=== PATIENT | female | born 1990 | race Caucasian/White ===

== ENCOUNTER 2016-11-20 03:49 | Inpatient (IN) | payer OTHER ==
[2016-11-20] MEDS ORDERED: Sodium Chloride 0.9% 2.5 ML Syringe FLUSH PRN (04:25)
[2016-11-20] MEDS ORDERED: Misoprostol 200 MCG Tab PO PRN (04:25)
[2016-11-20] MEDS ORDERED: Methylergonovine 0.2 MG/1 ML Amp IM PRN (04:25)
[2016-11-20] MEDS ORDERED: Sodium Chloride 0.9% 10 ML Syringe FLUSH PRN (04:25)
[2016-11-20] MEDS ORDERED: Water For Irrigation,Sterile 1,000 ML Container IRR PRN (04:25)
[2016-11-20] MEDS ORDERED: Carboprost Tromethamine 250 MCG/1 ML Amp IM PRN (04:25)
[2016-11-20] MEDS ORDERED: Lidocaine 1% 50 ML MDV INJECT PRN (04:25)
[2016-11-20] MEDS ORDERED: Nalbuphine 10 MG/1 ML Vial IVPUSH PRN (04:25)
[2016-11-20] MEDS ORDERED: Butorphanol 1 MG/ML SDV IVPUSH PRN (04:25)
[2016-11-20] MEDS ORDERED: Oxytocin/0.9 % Sodium Chloride 30 UNIT/500 ML BAG IV ONE (04:27)
[2016-11-20] MEDS: Lactated Ringers 1,000 ML IV SCH ×2 (04:35→05:30)
[2016-11-20] MEDS ORDERED: fentaNYL 100 MCG/2 ML SDV ONE (05:08)
[2016-11-20] MEDS ORDERED: Ropivacaine HCl/PF 100 ML ONE (05:09)
[2016-11-20] MEDS ORDERED: Ropivacaine 0.2% 2 MG/ML 20 ML SDV ONE (05:09)
--- NOTE | 2016-11-20 05:47 | PCM.PREANE ---
Preanesthetic Assessment - Anesthesia/Transfusion/Family Hx Anesthesia History: No Prior Anesthesia Family History of Anesthesia Reaction: No Transfusion History: No Prior Transfusion(s) Additional History: Patient denies any medical problems besides "slight asthma 10 years ago." Has never had surgery and denies any personal or family hx of bleeding or clotting problems. - Review of Systems General: No Symptoms Pulmonary: No Symptoms Cardiovascular: No Symptoms Gastrointestinal: No Symptoms Neurological: No Symptoms Other: Reports: None - Physical Assessment Height: 1.78 m Weight: 77.111 kg ASA Class: 2 Mental Status: Alert & Oriented x3 Airway Class: Mallampati = 2 Dentition: Reports: Normal Dentition ROM/Head Extension: Full - Lab Values: Laboratory Last Values WBC 11.31 K/uL (4.0-11.0) H 11/20/16 04:39 RBC 3.99 M/uL (4.30-5.90) L 11/20/16 04:39 Hgb 13.1 g/dL (12.0-16.0) 11/20/16 04:39 Hct 37.2 % (36.0-46.0) 11/20/16 04:39 MCV 93.2 fL (80.0-98.0) 11/20/16 04:39 MCH 32.8 pg (27.0-32.0) H 11/20/16 04:39 MCHC 35.2 g/dL (31.0-37.0) 11/20/16 04:39 RDW Std Deviation 42.8 fl (28.0-62.0) 11/20/16 04:39 RDW Coeff of Elda 13 % (11.0-15.0) 11/20/16 04:39 Plt Count 175 K/uL (150-400) 11/20/16 04:39 MPV 11.90 fL (7.40-12.00) 11/20/16 04:39 Nucleated RBC % 0.0 /100WBC 11/20/16 04:39 Nucleated RBCs # 0 K/uL 11/20/16 04:39 Blood Type A POSITIVE 11/20/16 04:39 Antibody Screen NEGATIVE 11/20/16 04:39 - Allergies Allergies/Adverse Reactions: Allergies Allergy/AdvReac Type Severity Reaction Status Date / Time No Known Allergies Allergy Verified 08/15/15 02:29 - Acknowledgements Anesthesia Type Planned: Epidural Pt an Appropriate Candidate for the Planned Anesthesia: Yes Alternatives and Risks of Anesthesia Discussed w Pt/Guardian: Yes Pt/Guardian Understands and Agrees with Anesthesia Plan: Yes PreAnesthesia Questionnaire Respiratory History: Reports: Asthma Other Respiratory History: mild asthma 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: - Infectious Disease History Infectious Disease History: Reports: Chicken Pox - Past Surgical History HEENT Surgical History: Reports: Oral Surgery - SUBSTANCE USE Smoking Status *Q: Never Smoker Second Hand Smoke Exposure: No Recreational Drug Use History: No - HOME MEDS Home Medications: Home Meds Acetaminophen [Tylenol Extra Strength] 1,000 mg PO Q4H PRN #0 tablet 08/16/15 [ Rx] Benzocaine/Menthol [Dermoplast Pain Relief 20%-0.5% [place]] 78 gm TOP ASDIRECTED PRN #0 canister 08/16/15 [Rx] Docusate Sodium [Colace] 100 mg PO BID PRN #0 cap 08/16/15 [Rx] Ibuprofen [IJD: Ibuprofen] 800 mg PO Q6H PRN #0 tablet 08/16/15 [Rx] - CURRENT (IN HOUSE) MEDS Current Meds: Current Medications Butorphanol Tartrate (Stadol) 1 mg IVPUSH Q1H PRN PRN Reason: Pain Carboprost Tromethamine (Hemabate Ds) 250 mcg IM ASDIRECTED PRN PRN Reason: Post Hemorrhage Lactated Ringer's (Ringers, Lactated) 1,000 mls @ 150 mls/hr IV ASDIRECTED JOIE Last Admin: 11/20/16 04:35 Dose: 150 mls/hr Lidocaine HCl (Xylocaine 1%) 50 ml INJECT .ONCE PRN PRN Reason: Laceration repair Methylergonovine Maleate (Methergine) 0.2 mg IM ASDIRECTED PRN PRN Reason: Post Hemorrhage Misoprostol (Cytotec) 200 mcg PO .ONCE PRN PRN Reason: Post Hemorrhage Nalbuphine HCl (Nubain) 10 mg IVPUSH Q1H PRN PRN Reason: Pain (severe 7-10) Sodium Chloride (Saline Flush) 10 ml FLUSH ASDIRECTED PRN PRN Reason: Keep Vein Open Sodium Chloride (Saline Flush) 2.5 ml FLUSH ASDIRECTED PRN PRN Reason: Keep Vein Open Sterile Water (Sterile Water For Irrigation) 1,000 ml IRR ASDIRECTED PRN PRN Reason: delivery Discontinued Medications Fentanyl (Sublimaze) Confirm Administered Dose 300 mcg .ROUTE .STK-MED ONE Stop: 11/20/16 05:09 Oxytocin/Sodium Chloride (Oxytocin 30 Unit/500 Ml-Ns) 30 unit in 500 mls @ 500 mls/hr IV ONETIME ONE Stop: 11/20/16 05:26 Ropivacaine (Naropin 0.2%) Confirm Administered Dose 100 mls @ as directed .ROUTE .STK-MED ONE Stop: 11/20/16 05:10 Ropivacaine (Naropin 0.2%) Confirm Administered Dose 20 ml .ROUTE .STK-MED ONE Stop: 11/20/16 05:10
[2016-11-20] MEDS ORDERED: Ibuprofen 400 MG Tab PO PRN (10:05)
[2016-11-20] MEDS ORDERED: oxyCODONE 5 MG Tab PO PRN (10:05)
[2016-11-20] MEDS ORDERED: Lanolin 100% Cream 7 GM Tube TOP PRN (10:05)
[2016-11-20] MEDS ORDERED: Acetaminophen 500 MG Tab PO PRN ×2 (10:05)
[2016-11-20] MEDS ORDERED: Docusate Sodium 100 MG Cap PO PRN (10:05)
[2016-11-20] MEDS ORDERED: Bisacodyl 10 MG Supp RECTAL PRN (10:05)
[2016-11-20] MEDS ORDERED: Witch Hazel Medicated Pads 40/Jar TOP PRN (10:05)
[2016-11-20] MEDS ORDERED: Benzocaine/Menthol 20%-0.5% Spray 78 GM Cannister TOP PRN (10:05)
--- NOTE | 2016-11-20 12:27 | PCM48HPAN ---
Post Anesthesia Note - EVALUATION WITHIN 48HRS OF ANESTHETIC Vital Signs in Normal Range: Yes Patient Participated in Evaluation: Yes Respiratory Function Stable: Yes Airway Patent: Yes Cardiovascular Function Stable: Yes Hydration Status Stable: Yes Pain Control Satisfactory: Yes Nausea and Vomiting Control Satisfactory: Yes Mental Status Recovered: Yes - COMMENTS/OBSERVATIONS Free Text/Narrative:: Sitting up in bed. Denies any complaints.
[2016-11-20] MEDS: Ibuprofen 800 MG Tab PO PRN (16:05)
[2016-11-21] MEDS: Ibuprofen 800 MG Tab PO PRN ×2 (00:09→08:54)
[2016-11-21 09:00] VITALS: BP 111/71
--- NOTE | 2016-11-21 10:19 | PCM.PNPP ---
<Rod Peralta - Last Filed: 11/21/16 10:28> - General Info Date of Service: 11/21/16 Functional Status: Reports: Pain Controlled, Tolerating Diet, Ambulating, Urinating - Review of Systems General: Denies: Fever, Weakness, Fatigue HEENT: Denies: Headaches, Visual Changes Pulmonary: Denies: Shortness of Breath, Pleuritic Chest Pain, Cough Cardiovascular: Denies: Chest Pain, Palpitations Gastrointestinal: Reports: Diarrhea (One episode last night). Denies: Constipation, Nausea, Vomiting Genitourinary: Denies: Dysuria Neurological: Denies: Confusion, Dizziness, Headache - General Info Date of Service: 11/21/16 - Patient Data Vital Signs - Most Recent: Last Vital Signs Temp 98 F 11/21/16 08:57 Pulse 69 11/21/16 08:57 Resp 16 11/21/16 08:57 BP 111/71 11/21/16 08:57 Pulse Ox 97 11/21/16 08:57 Weight - Most Recent: 170 lb Lab Results - Last 24 Hours: Laboratory Results - last 24 hr 11/21/16 Range/Units 05:16 Hgb 11.5 L (12.0-16.0) g/dL Hct 32.9 L (36.0-46.0) % Med Orders - Current: Current Medications Acetaminophen (Tylenol Extra Strength) 500 mg PO Q4H PRN PRN Reason: Pain Acetaminophen (Tylenol Extra Strength) 1,000 mg PO Q4H PRN PRN Reason: Pain Benzocaine/Menthol (Dermoplast Pain Relief 20%-0.5% [place]) 78 gm TOP ASDIRECTED PRN PRN Reason: Perineal Comfort Measure Last Admin: 11/20/16 11:15 Dose: 1 canister Bisacodyl (Dulcolax) 10 mg RECTAL .ONCE PRN PRN Reason: Constipation Docusate Sodium (Colace) 100 mg PO BID PRN PRN Reason: Constipation Emollient Ointment (Lansinoh Hpa) 0 gm TOP ASDIRECTED PRN PRN Reason: Sore Nipples Last Admin: 11/20/16 11:15 Dose: 1 applicful Ibuprofen (Motrin) 400 mg PO Q4H PRN PRN Reason: Pain Ibuprofen (Motrin) 800 mg PO Q6H PRN PRN Reason: Pain Last Admin: 11/21/16 08:54 Dose: 800 mg Oxycodone HCl (Oxycodone) 5 mg PO Q2H PRN PRN Reason: Pain Witch Symone (Tucks) 1 pad TOP ASDIRECTED PRN PRN Reason: comfort care Last Admin: 11/20/16 11:15 Dose: 1 tub Discontinued Medications Butorphanol Tartrate (Stadol) 1 mg IVPUSH Q1H PRN PRN Reason: Pain Carboprost Tromethamine (Hemabate Ds) 250 mcg IM ASDIRECTED PRN PRN Reason: Post Hemorrhage Fentanyl (Sublimaze) Confirm Administered Dose 300 mcg .ROUTE .[place]-MED ONE Stop: 11/20/16 05:09 Lactated Ringer's (Ringers, Lactated) 1,000 mls @ 150 mls/hr IV ASDIRECTED JOIE Last Admin: 11/20/16 05:30 Dose: 150 mls/hr Oxytocin/Sodium Chloride (Oxytocin 30 Unit/500 Ml-Ns) 30 unit in 500 mls @ 500 mls/hr IV ONETIME ONE Stop: 11/20/16 05:26 Last Admin: 11/20/16 09:28 Dose: 999 mls/hr Ropivacaine (Naropin 0.2%) Confirm Administered Dose 100 mls @ as directed .ROUTE .[employer] ONE Stop: 11/20/16 05:10 Lidocaine HCl (Xylocaine 1%) 50 ml INJECT .ONCE PRN PRN Reason: Laceration repair Methylergonovine Maleate (Methergine) 0.2 mg IM ASDIRECTED PRN PRN Reason: Post Hemorrhage Misoprostol (Cytotec) 200 mcg PO .ONCE PRN PRN Reason: Post Hemorrhage Nalbuphine HCl (Nubain) 10 mg IVPUSH Q1H PRN PRN Reason: Pain (severe 7-10) Ropivacaine (Naropin 0.2%) Confirm Administered Dose 20 ml .ROUTE .[employer] ONE Stop: 11/20/16 05:10 Sodium Chloride (Saline Flush) 10 ml FLUSH ASDIRECTED PRN PRN Reason: Keep Vein Open Sodium Chloride (Saline Flush) 2.5 ml FLUSH ASDIRECTED PRN PRN Reason: Keep Vein Open Sterile Water (Sterile Water For Irrigation) 1,000 ml IRR ASDIRECTED PRN PRN Reason: delivery - Interaction Infant Disposition, : to Nursery Infant Feeding: Breastfed ; Nursed Well Support Person: - Recovery Exam Fundal Tone: Firm Fundal Level: 1 Fingerbreadths Below Umbilicus Fundal Placement: Midline Lochia Amount: Scant Lochia Color: Rubra/Red Perineum Description: Intact, Minimal Bruising/Swelling Episiotomy/Laceration: Approximated Bladder Status: Nonpalpable Urinary Elimination: Voided - Exam General: Alert, Oriented HEENT: Mucous Membr. Moist/[place] Neck: Supple, Trachea Midline Lungs: Clear to Auscultation, Normal Respiratory Effort Cardiovascular: Regular Rate, Regular Rhythm GI/Abdominal Exam: Normal Bowel Sounds, Soft Extremities: Normal Inspection, Normal Range of Motion, No Pedal Edema Skin: Warm, Dry, Intact Neurological: No New Focal Deficit Psy/Mental Status: Alert, Normal Affect, Normal Mood - Problem List & Annotations (1) Vaginal delivery SNOMED Code(s): 222177208 Code(s): O80 - ENCOUNTER FOR FULL-TERM UNCOMPLICATED DELIVERY Status: Acute Current Visit: No - Problem List Review Problem List Initiated/Reviewed/Updated: Yes - Assessment Assessment:: PPD #1 - 39wk0d gestation. Minimal pain and lochia. is going well. - Plan Plan:: Plan to discharge today if no complications arise and if baby boy is ready to be discharged. Discharge instruction reviewed. Nothing in the vagina for 6 weeks. Continue PNV while breast feeding. Can use OTC ibuprofen/tylenol as needed for pain. Instructed patient to call if she develops fever greater than 101 or bleeding through a large pad an hour. F/U with [facility] in 6 weeks. <AmySakshi - Last Filed: 11/21/16 11:39> - Patient Data Vital Signs - Most Recent: Last Vital Signs Temp 36.6 C 11/21/16 08:57 Pulse 69 11/21/16 08:57 Resp 16 11/21/16 08:57 BP 111/71 11/21/16 08:57 Pulse Ox 97 11/21/16 08:57 Lab Results - Last 24 Hours: Laboratory Results - last 24 hr 11/21/16 Range/Units 05:16 Hgb 11.5 L (12.0-16.0) g/dL Hct 32.9 L (36.0-46.0) % Med Orders - Current: Current Medications Acetaminophen (Tylenol Extra Strength) 500 mg PO Q4H PRN PRN Reason: Pain Acetaminophen (Tylenol Extra Strength) 1,000 mg PO Q4H PRN PRN Reason: Pain Benzocaine/Menthol (Dermoplast Pain Relief 20%-0.5% [place]) 78 gm TOP ASDIRECTED PRN PRN Reason: Perineal Comfort Measure Last Admin: 11/20/16 11:15 Dose: 1 canister Bisacodyl (Dulcolax) 10 mg RECTAL .ONCE PRN PRN Reason: Constipation Docusate Sodium (Colace) 100 mg PO BID PRN PRN Reason: Constipation Emollient Ointment (Lansinoh Hpa) 0 gm TOP ASDIRECTED PRN PRN Reason: Sore Nipples Last Admin: 11/20/16 11:15 Dose: 1 applicful Ibuprofen (Motrin) 400 mg PO Q4H PRN PRN Reason: Pain Ibuprofen (Motrin) 800 mg PO Q6H PRN PRN Reason: Pain Last Admin: 11/21/16 08:54 Dose: 800 mg Oxycodone HCl (Oxycodone) 5 mg PO Q2H PRN PRN Reason: Pain Witch Symone (Tucks) 1 pad TOP ASDIRECTED PRN PRN Reason: comfort care Last Admin: 11/20/16 11:15 Dose: 1 tub Discontinued Medications Butorphanol Tartrate (Stadol) 1 mg IVPUSH Q1H PRN PRN Reason: Pain Carboprost Tromethamine (Hemabate Ds) 250 mcg IM ASDIRECTED PRN PRN Reason: Post Hemorrhage Fentanyl (Sublimaze) Confirm Administered Dose 300 mcg .ROUTE .STK-MED ONE Stop: 11/20/16 05:09 Lactated Ringer's (Ringers, Lactated) 1,000 mls @ 150 mls/hr IV ASDIRECTED JOIE Last Admin: 11/20/16 05:30 Dose: 150 mls/hr Oxytocin/Sodium Chloride (Oxytocin 30 Unit/500 Ml-Ns) 30 unit in 500 mls @ 500 mls/hr IV ONETIME ONE Stop: 11/20/16 05:26 Last Admin: 11/20/16 09:28 Dose: 999 mls/hr Ropivacaine (Naropin 0.2%) Confirm Administered Dose 100 mls @ as directed .ROUTE .[employer] ONE Stop: 11/20/16 05:10 Lidocaine HCl (Xylocaine 1%) 50 ml INJECT .ONCE PRN PRN Reason: Laceration repair Methylergonovine Maleate (Methergine) 0.2 mg IM ASDIRECTED PRN PRN Reason: Post Hemorrhage Misoprostol (Cytotec) 200 mcg PO .ONCE PRN PRN Reason: Post Hemorrhage Nalbuphine HCl (Nubain) 10 mg IVPUSH Q1H PRN PRN Reason: Pain (severe 7-10) Ropivacaine (Naropin 0.2%) Confirm Administered Dose 20 ml .ROUTE .[employer] ONE Stop: 11/20/16 05:10 Sodium Chloride (Saline Flush) 10 ml FLUSH ASDIRECTED PRN PRN Reason: Keep Vein Open Sodium Chloride (Saline Flush) 2.5 ml FLUSH ASDIRECTED PRN PRN Reason: Keep Vein Open Sterile Water (Sterile Water For Irrigation) 1,000 ml IRR ASDIRECTED PRN PRN Reason: delivery - Problem List & Annotations (1) Vaginal delivery SNOMED Code(s): 526881873 Code(s): O80 - ENCOUNTER FOR FULL-TERM UNCOMPLICATED DELIVERY Status: Acute Current Visit: No - My Orders Last 24 Hours: My Active Orders 11/20/16 Lunch Regular Diet [DIET] - Assessment Assessment:: Patient assessed independently, agree with above - Plan Plan:: Agree with above. Will call patient with 6 weeks appointment
--- NOTE | 2016-11-23 13:49 | OR ---
DATE OF PROCEDURE: 11/20/2016 SURGEON: Sakshi Reyes MD MANAGER FEDERAL: Kin Peralta, MS-IV. PREOPERATIVE DIAGNOSES: 1. Term at 39 weeks' gestation. 2. Spontaneous labor. POSTOPERATIVE DIAGNOSES: 1. Term at 39 weeks' gestation. 2. Spontaneous labor. 3. Delivered. PROCEDURE: 1. Spontaneous vaginal delivery. 2. Repair of first-degree perineal laceration. ANESTHESIA: Epidural. ESTIMATED BLOOD LOSS: 150 mL. COMPLICATIONS: None. DISPOSITION: Mother and baby stable in Labor and Delivery room, bonding. FINDINGS: Male , weight 3410 g, scores 7 and 9 at 1 and 5 minutes respectively. Grossly normal placenta with 3-vessel cord. First-degree vaginal wall laceration at 7 o'clock position. BRIEF HISTORY: Stephanie is a 26-year-old, G2, P1, who presented in the early hours of the morning at 39 weeks' gestation with a history of regular contractions since midnight. She denied vaginal bleeding, leakage of fluid, and reported good movement. Uncomplicated care. GBS negative. On admission at 0400 hours this morning, she was found to be 6 cm dilated with bulging membranes. She requested and received epidural for pain management. Artificial rupture of membranes was performed after the epidural was effective, clear amniotic fluid. She progressed to full dilatation and commenced active pushing. She pushed a little over 2 hours and brought the head down to a +4 station, and was set up for delivery in modified dorsolithotomy position. heart tracing was mainly category I, alternating with category II, especially during the second stage of labor with variable and occasional late decelerations, but maintained moderate variability. DESCRIPTION OF PROCEDURE: She had a spontaneous vaginal delivery of a live male infant in direct occipital posterior position, no nuchal cord, clear amniotic fluid at delivery. Anterior and posterior shoulders and the rest of the baby were delivered without difficulty. The baby was vigorous and cried spontaneously at . The baby was delivered onto the maternal abdomen in the presence of the attendant nursery nurse. Delayed cord clamping was performed, and the cord was subsequently cut. Cord, blood and gas samples were obtained. With delivery of the infant, oxytocin infusion was commenced, titration for active management of third stage of labor. The placenta was delivered by controlled cord traction and appeared to be complete and intact. Examination of the perineum revealed a small first-degree laceration at 7 o'clock position, which was repaired with 3-0 Polysorb suture. Hemostatic post repair. The patient tolerated the procedure well. Uterine massage was performed. The uterus was found to be well contracted below the umbilicus. Sponge, instrument, and needle counts were correct at the end of the delivery. ADUMVIV / SHARIFL /[id number] MTDShannan
== END 2016-11-21 12:45 | disposition home or self-care (01) | DRG 775 ==
LOC: MW.OBCHECK 03:49 → MW.OB 03:54 → MW.OBCHECK 04:26 → OBSVTOIN 10:05 → MW.OB 16:10
PROVIDERS: ADMIT Obstetrics & Gynecology; ATTEND Obstetrics & Gynecology
PROC: 10E0XZZ Delivery of Products of Conception, External Approach (ICD-10-PCS; principal; 2016-11-20)
PROC: 0HQ9XZZ Repair Perineum Skin, External Approach (ICD-10-PCS; 2016-11-20)
PROC: 10907ZC Drainage of Amniotic Fluid, Therapeutic from Products of Conception, Via Natural or Artificial Opening (ICD-10-PCS; 2016-11-20)
DX: O70.0 First degree perineal laceration during delivery (principal); Z3A.39 39 weeks gestation of pregnancy; Z37.0 Single live birth
CPT/HCPCS: 01967; 36415; 51702; 59025; 59409; 85014; 85018; 85027; 86850; 86900; 86901; A9270-GY; J2590; J2795; J3010; J7120

== ENCOUNTER 2018-12-14 00:48 | Inpatient (IN) | payer OTHER ==
[2018-12-14] MEDS ORDERED: Misoprostol 200 MCG Tab PO PRN (01:07)
[2018-12-14] MEDS ORDERED: Butorphanol 1 MG/ML SDV IVPUSH PRN (01:07)
[2018-12-14] MEDS ORDERED: Water For Irrigation,Sterile 1,000 ML Container IRR PRN (01:07)
[2018-12-14] MEDS ORDERED: Lidocaine 1% 50 ML MDV INJECT PRN (01:07)
[2018-12-14] MEDS ORDERED: Tranexamic Acid 1,000 MG in Sodium Chloride 0.9% 100 ML IV PRN (01:07)
[2018-12-14] MEDS ORDERED: Sodium Chloride 0.9% 10 ML SDV IV PRN (01:07)
[2018-12-14] MEDS ORDERED: Nalbuphine 10 MG/1 ML Vial IVPUSH PRN (01:07)
[2018-12-14] MEDS ORDERED: Methylergonovine 0.2 MG/1 ML Amp IM PRN (01:07)
[2018-12-14] MEDS ORDERED: Carboprost Tromethamine 250 MCG/1 ML Amp IM PRN (01:07)
[2018-12-14] MEDS ORDERED: Sodium Chloride 0.9% 10 ML Syringe FLUSH PRN (01:07)
[2018-12-14] MEDS ORDERED: Ondansetron 4 MG/2 ML SDV IVPUSH PRN (01:07)
[2018-12-14] MEDS ORDERED: Oxytocin/0.9 % Sodium Chloride 30 UNIT/500 ML BAG IV SCH (01:15)
[2018-12-14] MEDS: Lactated Ringers 1,000 ML IV SCH ×2 (01:20→02:06)
[2018-12-14] MEDS ORDERED: Ropivacaine HCl/PF 100 ML ONE (02:10)
[2018-12-14] MEDS ORDERED: fentaNYL 100 MCG/2 ML SDV ONE (02:10)
--- NOTE | 2018-12-14 02:29 | PCM.PREANE ---
Preanesthetic Assessment - Anesthesia/Transfusion/Family Hx Anesthesia History: Prior Anesthesia Without Reaction Family History of Anesthesia Reaction: No Transfusion History: No Prior Transfusion(s) - Physical Assessment NPO Status Date: 12/14/18 NPO Status Time: 00:05 Height: 1.78 m Weight: 74.843 kg ASA Class: 1 Mental Status: Alert & Oriented x3 Dentition: Reports: Normal Dentition - Lab Values: Laboratory Last Values WBC 10.68 K/uL (4.0-11.0) 12/14/18 01:41 RBC 3.87 M/uL (4.30-5.90) L 12/14/18 01:41 Hgb 12.6 g/dL (12.0-16.0) 12/14/18 01:41 Hct 36.0 % (36.0-46.0) 12/14/18 01:41 MCV 93.0 fL (80.0-98.0) 12/14/18 01:41 MCH 32.6 pg (27.0-32.0) H 12/14/18 01:41 MCHC 35.0 g/dL (31.0-37.0) 12/14/18 01:41 RDW Std Deviation 40.9 fl (28.0-62.0) 12/14/18 01:41 RDW Coeff of Elda 13 % (11.0-15.0) 12/14/18 01:41 Plt Count 185 K/uL (150-400) 12/14/18 01:41 MPV 10.60 fL (7.40-12.00) 12/14/18 01:41 - Allergies Allergies/Adverse Reactions: Allergies Allergy/AdvReac Type Severity Reaction Status Date / Time No Known Allergies Allergy Verified 08/15/15 02:29 - Acknowledgements Anesthesia Type Planned: Epidural Pt an Appropriate Candidate for the Planned Anesthesia: Yes Alternatives and Risks of Anesthesia Discussed w Pt/Guardian: Yes Pt/Guardian Understands and Agrees with Anesthesia Plan: Yes PreAnesthesia Questionnaire Respiratory History: Reports: Asthma Other Respiratory History: mild asthma 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: - Infectious Disease History Infectious Disease History: Reports: Chicken Pox - Past Surgical History HEENT Surgical History: Reports: Oral Surgery - HOME MEDS Home Medications: Home Meds Acetaminophen [Tylenol Extra Strength] 1,000 mg PO Q4H PRN #0 tablet 08/16/15 [ Rx] Benzocaine/Menthol [Dermoplast Pain Relief 20%-0.5% [place]] 78 gm TOP ASDIRECTED PRN #0 canister 08/16/15 [Rx] Docusate Sodium [Colace] 100 mg PO BID PRN #0 cap 08/16/15 [Rx] Ibuprofen [IJD: Ibuprofen] 800 mg PO Q6H PRN #0 tablet 08/16/15 [Rx] - CURRENT (IN HOUSE) MEDS Current Meds: Current Medications Butorphanol Tartrate (Stadol) 1 mg IVPUSH ASDIRECTED PRN PRN Reason: Pain Carboprost Tromethamine (Hemabate Ds) 250 mcg IM ASDIRECTED PRN PRN Reason: Post Hemorrhage Tranexamic Acid 1,000 mg/ (Sodium Chloride) 110 mls @ 660 mls/hr IV ONETIME PRN PRN Reason: Bleeding Lactated Ringer's (Ringers, Lactated) 1,000 mls @ 150 mls/hr IV ASDIRECTED JOIE Last Admin: 12/14/18 02:06 Dose: 999 mls/hr Oxytocin/Sodium Chloride (Oxytocin 30 Unit/500 Ml-Ns) 30 unit in 500 mls @ 999 mls/hr IV TITRATE [facility] Lidocaine HCl (Xylocaine 1%) 50 ml INJECT ONETIME PRN PRN Reason: Laceration repair Methylergonovine Maleate (Methergine) 0.2 mg IM ASDIRECTED PRN PRN Reason: Post Hemorrhage Misoprostol (Cytotec) 200 mcg PO ONETIME PRN PRN Reason: Post Hemorrhage Nalbuphine HCl (Nubain) 10 mg IVPUSH ASDIRECTED PRN PRN Reason: Pain (severe 7-10) Ondansetron HCl (Zofran) 4 mg IVPUSH Q6H PRN PRN Reason: Nausea/Vomiting Sodium Chloride (Saline Flush) 10 ml FLUSH ASDIRECTED PRN PRN Reason: Keep Vein Open Sodium Chloride (Normal Saline) 10 ml IV ASDIRECTED PRN PRN Reason: IV Use Sterile Water (Sterile Water For Irrigation) 1,000 ml IRR ASDIRECTED PRN PRN Reason: delivery Discontinued Medications Fentanyl (Sublimaze) Confirm Administered Dose 100 mcg .ROUTE .STK-MED ONE Stop: 12/14/18 02:11 Ropivacaine (Naropin 0.2%) Confirm Administered Dose 100 mls @ as directed .ROUTE .ST-MED ONE Stop: 12/14/18 02:11
--- NOTE | 2018-12-14 02:33 | PCM.PRNOTE ---
- Free Text/Narrative Note: Anes Note Patient requests epidural for L&D. Sitting position. Level L3-L4, midline approach. Sterile technique, chloraprep scrub to lumbar area. Sterile fenestrated drape applied. Epidural space easily achieved single attempt with ease using COURTNEY technique. COURTNEY at 3 cm. Cath threaded 5 cm with ease. Cath secured at skin at 8 cm, using sterile clear adhesive dressing. Test 0123 3 cc 1.5% lido with epi negative. Load 0125 10 cc 0.2% ropivicaine with 1 mcg cc fentanyl in slow divided doses. Pump started same solution at 8 cc hr with 6 cc q 20 min prn bolus. Heraclio well. Time with patient [id number] Narciso Branham INSURANCE FOLLOW UP REP
[2018-12-14] MEDS ORDERED: Oxytocin/0.9 % Sodium Chloride 30 UNIT/500 ML BAG ONE (04:40)
--- NOTE | 2018-12-14 05:37 | PCM.DEL ---
<Priya Garcia E - Last Filed: 12/14/18 05:45> L & D Note - General Info Date of Service: 12/14/18 Mother's Due Date: 12/14/18 - Delivery Note Labor: Spontaneous Delivery Outcome: Livebirth Infant Delivery Method: Spontaneous Vaginal Delivery-Single Delivery Mode: Spontaneous Nuchal Cord: None Anesthesia Type: Epidural Anesthetic: Lidocaine (Xylocaine) 1% Plain Amniotic Fluid Description: Clear Episiotomy Type: None Laceration: None Placenta: Intact, Spontaneous Cord: 3 Vessels Estimated Blood Loss: 200 Resuscitation Needed: No [place]: Suctioned, Bulb Syringe, Stimulated, Warmed, [place] Used Provider: Nakia Decker Score 1 min: 8 Score 5 min: 9 Second Stage Interventions: Reports: Encouragement Given, Pushing Effectively, Pushing, Stirrups/Leg Supports Delivery Comments (Free Text/Narrative):: Live female, Yesenia, with apgars 8/9 and weighing 3780 g - General Info Date of Service: 12/14/18 Admission Dx/Problem (Free Text): Spontaneous vaginal delivery Functional Status: Reports: Pain Controlled - Patient Data Weight - Most Recent: 76.204 kg Lab Results Last 24 Hours: Laboratory Results - last 24 hr 12/14/18 12/14/18 Range/Units 01:41 01:41 WBC 10.68 (4.0-11.0) K/uL RBC 3.87 L (4.30-5.90) M/uL Hgb 12.6 (12.0-16.0) g/dL Hct 36.0 (36.0-46.0) % MCV 93.0 (80.0-98.0) fL MCH 32.6 H (27.0-32.0) pg MCHC 35.0 (31.0-37.0) g/dL RDW Std Deviation 40.9 (28.0-62.0) fl RDW Coeff of Elda 13 (11.0-15.0) % Plt Count 185 (150-400) K/uL MPV 10.60 (7.40-12.00) fL Blood Type A POSITIVE Antibody Screen NEGATIVE Med Orders - Current: Current Medications Butorphanol Tartrate (Stadol) 1 mg IVPUSH ASDIRECTED PRN PRN Reason: Pain Carboprost Tromethamine (Hemabate Ds) 250 mcg IM ASDIRECTED PRN PRN Reason: Post Hemorrhage Tranexamic Acid 1,000 mg/ (Sodium Chloride) 110 mls @ 660 mls/hr IV ONETIME PRN PRN Reason: Bleeding Lactated Ringer's (Ringers, Lactated) 1,000 mls @ 150 mls/hr IV ASDIRECTED JOIE Last Admin: 12/14/18 02:06 Dose: 999 mls/hr Oxytocin/Sodium Chloride (Oxytocin 30 Unit/500 Ml-Ns) 30 unit in 500 mls @ 999 mls/hr IV TITRATE [facility] Lidocaine HCl (Xylocaine 1%) 50 ml INJECT ONETIME PRN PRN Reason: Laceration repair Methylergonovine Maleate (Methergine) 0.2 mg IM ASDIRECTED PRN PRN Reason: Post Hemorrhage Misoprostol (Cytotec) 200 mcg PO ONETIME PRN PRN Reason: Post Hemorrhage Nalbuphine HCl (Nubain) 10 mg IVPUSH ASDIRECTED PRN PRN Reason: Pain (severe 7-10) Ondansetron HCl (Zofran) 4 mg IVPUSH Q6H PRN PRN Reason: Nausea/Vomiting Sodium Chloride (Saline Flush) 10 ml FLUSH ASDIRECTED PRN PRN Reason: Keep Vein Open Sodium Chloride (Normal Saline) 10 ml IV ASDIRECTED PRN PRN Reason: IV Use Sterile Water (Sterile Water For Irrigation) 1,000 ml IRR ASDIRECTED PRN PRN Reason: delivery Discontinued Medications Fentanyl (Sublimaze) Confirm Administered Dose 100 mcg .ROUTE .STK-MED ONE Stop: 12/14/18 02:11 Ropivacaine (Naropin 0.2%) Confirm Administered Dose 100 mls @ as directed .ROUTE .STK-MED ONE Stop: 12/14/18 02:11 Oxytocin/Sodium Chloride (Oxytocin 30 Unit/500 Ml-Ns) Confirm Administered Dose 30 unit in 500 mls @ as directed .ROUTE .STK-MED ONE Stop: 12/14/18 04:41 - Problem List Review Problem List Initiated/Reviewed/Updated: Yes - Assessment Assessment:: Stephanie is a 28 yo G2 now P2 that had an uncomplicated spontaneous vaginal delivery at 39+4 wks. PNC uncomplicated. Patient doing well - Plan Plan:: Monitor lochia and BP. Control pain, ambulate as tolerated, regular diet as tolerated. Adequate hydration We will plan on discharge tomorrow (12/15/18). <Yosvany Malloryjose luis - Last Filed: 12/14/18 06:01> L & D Note - Delivery Note Presentation: Right Occiput Anterior (SARAI) Provider: Elle Mallory Delivery Comments (Free Text/Narrative):: Live female delivered at 456am , 8/9 weight 3780g - Patient Data Lab Results Last 24 Hours: Laboratory Results - last 24 hr 12/14/18 12/14/18 12/14/18 Range/Units 01:41 01:41 04:56 WBC 10.68 (4.0-11.0) K/uL RBC 3.87 L (4.30-5.90) M/uL Hgb 12.6 (12.0-16.0) g/dL Hct 36.0 (36.0-46.0) % MCV 93.0 (80.0-98.0) fL MCH 32.6 H (27.0-32.0) pg MCHC 35.0 (31.0-37.0) g/dL RDW Std Deviation 40.9 (28.0-62.0) fl RDW Coeff of [place] 13 (11.0-15.0) % Plt Count 185 (150-400) K/uL MPV 10.60 (7.40-12.00) fL Cord ABG pH 7.236 (7.18-7.38) Cord ABG Base Excess -7 (-10--2) Cord VBG pH 7.298 (7.25-7.45) Cord VBG Base Excess -6 (-10--2) Blood Type A POSITIVE Antibody Screen NEGATIVE Med Orders - Current: Current Medications Acetaminophen (Tylenol Extra Strength) 500 mg PO Q4H PRN PRN Reason: Pain Acetaminophen (Tylenol Extra Strength) 1,000 mg PO Q4H PRN PRN Reason: Pain Benzocaine/Menthol (Dermoplast Pain Relief 20%-0.5% [place]) 78 gm TOP ASDIRECTED PRN PRN Reason: Perineal Comfort Measure Bisacodyl (Dulcolax) 10 mg RECTAL ONETIME PRN PRN Reason: Constipation Butorphanol Tartrate (Stadol) 1 mg IVPUSH ASDIRECTED PRN PRN Reason: Pain Carboprost Tromethamine (Hemabate Ds) 250 mcg IM ASDIRECTED PRN PRN Reason: Post Hemorrhage Docusate Sodium (Colace) 100 mg PO BID PRN PRN Reason: Constipation Emollient Ointment (Lansinoh Hpa) 0 gm TOP ASDIRECTED PRN PRN Reason: Sore Nipples Tranexamic Acid 1,000 mg/ (Sodium Chloride) 110 mls @ 660 mls/hr IV ONETIME PRN PRN Reason: Bleeding Lactated Ringer's (Ringers, Lactated) 1,000 mls @ 150 mls/hr IV ASDIRECTED [facility] Last Admin: 12/14/18 02:06 Dose: 999 mls/hr Oxytocin/Sodium Chloride (Oxytocin 30 Unit/500 Ml-Ns) 30 unit in 500 mls @ 999 mls/hr IV TITRATE [facility] Last Admin: 12/14/18 04:58 Dose: 999 mls/hr Ibuprofen (Motrin) 400 mg PO Q4H PRN PRN Reason: Pain Ibuprofen (Motrin) 800 mg PO Q6H PRN PRN Reason: Pain Lidocaine HCl (Xylocaine 1%) 50 ml INJECT ONETIME PRN PRN Reason: Laceration repair Methylergonovine Maleate (Methergine) 0.2 mg IM ASDIRECTED PRN PRN Reason: Post Hemorrhage Misoprostol (Cytotec) 200 mcg PO ONETIME PRN PRN Reason: Post Hemorrhage Nalbuphine HCl (Nubain) 10 mg IVPUSH ASDIRECTED PRN PRN Reason: Pain (severe 7-10) Ondansetron HCl (Zofran) 4 mg IVPUSH Q6H PRN PRN Reason: Nausea/Vomiting Oxycodone HCl (Oxycodone) 5 mg PO Q2H PRN PRN Reason: Pain Sodium Chloride (Saline Flush) 10 ml FLUSH ASDIRECTED PRN PRN Reason: Keep Vein Open Sodium Chloride (Normal Saline) 10 ml IV ASDIRECTED PRN PRN Reason: IV Use Sterile Water (Sterile Water For Irrigation) 1,000 ml IRR ASDIRECTED PRN PRN Reason: delivery Last Admin: 12/14/18 05:50 Dose: 1,000 ml Witch Symone (Tucks) 1 pad TOP ASDIRECTED PRN PRN Reason: comfort care Discontinued Medications Fentanyl (Sublimaze) Confirm Administered Dose 100 mcg .ROUTE .STK-MED ONE Stop: 12/14/18 02:11 Ropivacaine (Naropin 0.2%) Confirm Administered Dose 100 mls @ as directed .ROUTE .STK-MED ONE Stop: 12/14/18 02:11 Oxytocin/Sodium Chloride (Oxytocin 30 Unit/500 Ml-Ns) Confirm Administered Dose 30 unit in 500 mls @ as directed .ROUTE .STK-MED ONE Stop: 12/14/18 04:41 - Problem List & Annotations (1) Vaginal delivery SNOMED Code(s): 099066252 Code(s): O80 - ENCOUNTER FOR FULL-TERM UNCOMPLICATED DELIVERY Status: Acute Current Visit: No - Problem List Review Problem List Initiated/Reviewed/Updated: Yes - My Orders Last 24 Hours: My Active Orders 12/14/18 00:53 Non Stress Test [RC] PER UNIT ROUTINE Up ad Olivia [RC] ASDIRECTED Vaginal Exam [RC] Click to Edit Vital Signs [RC] PER UNIT ROUTINE 12/14/18 01:07 Patient Status [ADT] Routine Heart Tones [RC] CONTINUOUS Non Stress Test [RC] PER UNIT ROUTINE May Shower [RC] ASDIRECTED Notify Provider [RC] PRN Up ad Olivia [RC] ASDIRECTED Vaginal Exam [RC] PRN Vital Signs [RC] PER UNIT ROUTINE Butorphanol [Stadol] 1 mg IVPUSH ASDIRECTED PRN Carboprost Tromethamine [Hemabate DS] 250 mcg IM ASDIRECTED PRN Lidocaine 1% [Xylocaine 1%] 50 ml INJECT ONETIME PRN Methylergonovine [Methergine] 0.2 mg IM ASDIRECTED PRN Nalbuphine [Nubain] 10 mg IVPUSH ASDIRECTED PRN Ondansetron [Zofran] 4 mg IVPUSH Q6H PRN Sodium Chloride 0.9% [Normal Saline] 10 ml IV ASDIRECTED PRN Sodium Chloride 0.9% [Saline Flush] 10 ml FLUSH ASDIRECTED PRN Tranexamic Acid [Cyklokapron] 1,000 mg Sodium Chloride 0.9% [Normal Saline] 100 ml IV ONETIME Water For Irrigation,Sterile [Sterile Water for Irrigation] 1,000 ml IRR ASDIRECTED PRN miSOPROStol [Cytotec] 200 mcg PO ONETIME PRN Scalp Electrode [WOMSER] Per Unit Routine Peripheral IV Insertion Adult [OM.PC] Routine 12/14/18 01:15 Lactated Ringers [Ringers, Lactated] 1,000 ml IV ASDIRECTED Oxytocin/0.9 % Sodium Chloride [Oxytocin 30 Unit/500 ML-NS] 30 unit in 500 ml IV TITRATE 12/14/18 01:41 RAPID PLASMA REAGIN, QUANT [REF] Routine 12/14/18 05:43 Patient Status [ADT] Routine May Shower [RC] ASDIRECTED Up ad Olivia [RC] ASDIRECTED Vital Signs [RC] PER UNIT ROUTINE Acetaminophen [Tylenol Extra Strength] 1,000 mg PO Q4H PRN Acetaminophen [Tylenol Extra Strength] 500 mg PO Q4H PRN Benzocaine/Menthol [Dermoplast Pain Relief 20%-0.5% [place]] 78 gm TOP ASDIRECTED PRN Bisacodyl [Dulcolax] 10 mg RECTAL ONETIME PRN Docusate Sodium [Colace] 100 mg PO BID PRN Ibuprofen [Motrin] 400 mg PO Q4H PRN Ibuprofen [Motrin] 800 mg PO Q6H PRN Lanolin [Lansinoh HPA] See Dose Instructions TOP ASDIRECTED PRN Witch Symone [Tucks] 1 pad TOP ASDIRECTED PRN oxyCODONE 5 mg PO Q2H PRN Assess Lochia [WOMSER] Per Unit Routine Assess Uterine Involution [WOMSER] Per Unit Routine Peripheral IV Discontinue [OM.PC] Routine Resuscitation Status Routine 12/15/18 05:11 HEMOGLOBIN/HEMATOCRIT,HH [HEME] Timed
[2018-12-14] MEDS ORDERED: Witch Hazel Medicated Pads 40/Jar TOP PRN (05:43)
[2018-12-14] MEDS ORDERED: Lanolin 100% Cream 7 GM Tube TOP PRN (05:43)
[2018-12-14] MEDS ORDERED: oxyCODONE 5 MG Tab PO PRN (05:43)
[2018-12-14] MEDS ORDERED: Acetaminophen 500 MG Tab PO PRN ×2 (05:43)
[2018-12-14] MEDS ORDERED: Benzocaine/Menthol 20%-0.5% Spray 78 GM Cannister TOP PRN (05:43)
[2018-12-14] MEDS ORDERED: Docusate Sodium 100 MG Cap PO PRN (05:43)
[2018-12-14] MEDS ORDERED: Bisacodyl 10 MG Supp RECTAL PRN (05:43)
[2018-12-14] MEDS ORDERED: Ibuprofen 400 MG Tab PO PRN (05:43)
--- NOTE | 2018-12-14 06:22 | PCM.POSTAN ---
POST ANESTHESIA ASSESSMENT - MENTAL STATUS Mental Status: Alert, Somnolent - RESPIRATORY Respiratory Status: Respiratory Rate WNL - CARDIOVASCULAR CV Status: Pulse Rate WNL - GASTROINTESTINAL GI Status: No Symptoms - POST OP HYDRATION Hydration Status: Adequate & Stable
--- NOTE | 2018-12-14 06:23 | PCM48HPAN ---
Post Anesthesia Note - EVALUATION WITHIN 48HRS OF ANESTHETIC Vital Signs in Normal Range: Yes Patient Participated in Evaluation: Yes Respiratory Function Stable: Yes Airway Patent: Yes Cardiovascular Function Stable: Yes Hydration Status Stable: Yes Pain Control Satisfactory: Yes Nausea and Vomiting Control Satisfactory: Yes Mental Status Recovered: Yes
--- NOTE | 2018-12-14 06:38 | OR ---
SURGEON: DENA ROE DATE OF PROCEDURE: 12/14/2018 PREOPERATIVE DIAGNOSIS: A 28-year-old G3, P2, at 39 weeks 4 days, admitted in early labor. POSTOPERATIVE DIAGNOSIS: A 28-year-old G3, P2, at 39 weeks 4 days, admitted in early labor. PROCEDURE: Normal spontaneous vaginal delivery. ESTIMATED BLOOD LOSS: 200 mL. FLUIDS REPLACED: Pitocin running. ESTIMATED BLOOD LOSS: 200 mL. ANESTHESIA: Epidural. NOTES AND FINDINGS: A live female delivered at 4:56 a.m. score is 8 and 9. Weight is 3780 g. BRIEF HISTORY: She is a 28-year-old G3, P2-0-0-2, low risk patient who came in complaining of contractions. When she came here, she was about 4 to 5 cm dilated. She is requesting epidural which she received. She made normal labor progress, became fully dilated after she has spontaneously ruptured on her own. The patient being fully dilated, she was encouraged to push. DESCRIPTION OF PROCEDURE: With good pushing effort, the patient delivered the head in SARAI position followed by the anterior and posterior shoulder and the body of the was then delivered. Infant was placed on the maternal abdomen. Delayed cord clamping was observed. The cord was clamped and cut. Cord blood gases were obtained. The placenta was delivered via controlled cord traction. The uterus was then massaged. The perineum was inspected and noted to be intact, and all instrument and pad counts were correct x2. The patient tolerated the procedure well and was left in the Labor and Delivery room in stable condition. GUMARO TUTTLE /[id number] MTDShannan
[2018-12-14] MEDS: Ibuprofen 800 MG Tab PO PRN ×3 (08:55→20:52)
[2018-12-15 07:29] VITALS: BP 121/79; PULSE 63
--- NOTE | 2018-12-15 08:57 | PCM.PNPP ---
<JosePriya E - Last Filed: 12/15/18 08:57> - General Info Date of Service: 12/15/18 Admission Dx/Problem (Free Text): Uncomplicated Subjective Update: Yza is doing very well this AM. States pain is very manageable, and she is voiding, eating, and ambulating well Functional Status: Reports: Pain Controlled, Tolerating Diet, Ambulating, Urinating - Review of Systems General: Denies: Fever, Weakness, Chills HEENT: Denies: Headaches, Visual Changes Pulmonary: Denies: Shortness of Breath Cardiovascular: Denies: Chest Pain Gastrointestinal: Reports: Other ("soreness") Genitourinary: Denies: Dysuria Neurological: Reports: No Symptoms Psychiatric: Reports: No Symptoms - General Info Date of Service: 12/15/18 - Patient Data Vital Signs - Most Recent: Last Vital Signs Temp 36.6 C 12/15/18 07:28 Pulse 63 12/15/18 07:28 Resp 16 12/15/18 07:28 BP 121/79 12/15/18 07:28 Pulse Ox 98 12/15/18 07:28 Weight - Most Recent: 76.204 kg Lab Results - Last 24 Hours: Laboratory Results - last 24 hr 12/15/18 Range/Units 06:31 Hgb 11.8 L (12.0-16.0) g/dL Hct 35.2 L (36.0-46.0) % Med Orders - Current: Current Medications Acetaminophen (Tylenol Extra Strength) 500 mg PO Q4H PRN PRN Reason: Pain Acetaminophen (Tylenol Extra Strength) 1,000 mg PO Q4H PRN PRN Reason: Pain Benzocaine/Menthol (Dermoplast Pain Relief 20%-0.5% [place]) 78 gm TOP ASDIRECTED PRN PRN Reason: Perineal Comfort Measure Bisacodyl (Dulcolax) 10 mg RECTAL ONETIME PRN PRN Reason: Constipation Butorphanol Tartrate (Stadol) 1 mg IVPUSH ASDIRECTED PRN PRN Reason: Pain Carboprost Tromethamine (Hemabate Ds) 250 mcg IM ASDIRECTED PRN PRN Reason: Post Hemorrhage Docusate Sodium (Colace) 100 mg PO BID PRN PRN Reason: Constipation Last Admin: 12/14/18 20:51 Dose: 100 mg Emollient Ointment (Lansinoh Hpa) 0 gm TOP ASDIRECTED PRN PRN Reason: Sore Nipples Tranexamic Acid 1,000 mg/ (Sodium Chloride) 110 mls @ 660 mls/hr IV ONETIME PRN PRN Reason: Bleeding Lactated Ringer's (Ringers, Lactated) 1,000 mls @ 150 mls/hr IV ASDIRECTED [facility] Last Admin: 12/14/18 02:06 Dose: 999 mls/hr Oxytocin/Sodium Chloride (Oxytocin 30 Unit/500 Ml-Ns) 30 unit in 500 mls @ 999 mls/hr IV TITRATE [facility] Last Admin: 12/14/18 04:58 Dose: 999 mls/hr Ibuprofen (Motrin) 400 mg PO Q4H PRN PRN Reason: Pain Ibuprofen (Motrin) 800 mg PO Q6H PRN PRN Reason: Pain Last Admin: 12/14/18 20:52 Dose: 800 mg Lidocaine HCl (Xylocaine 1%) 50 ml INJECT ONETIME PRN PRN Reason: Laceration repair Methylergonovine Maleate (Methergine) 0.2 mg IM ASDIRECTED PRN PRN Reason: Post Hemorrhage Misoprostol (Cytotec) 200 mcg PO ONETIME PRN PRN Reason: Post Hemorrhage Nalbuphine HCl (Nubain) 10 mg IVPUSH ASDIRECTED PRN PRN Reason: Pain (severe 7-10) Ondansetron HCl (Zofran) 4 mg IVPUSH Q6H PRN PRN Reason: Nausea/Vomiting Oxycodone HCl (Oxycodone) 5 mg PO Q2H PRN PRN Reason: Pain Sodium Chloride (Saline Flush) 10 ml FLUSH ASDIRECTED PRN PRN Reason: Keep Vein Open Sodium Chloride (Normal Saline) 10 ml IV ASDIRECTED PRN PRN Reason: IV Use Sterile Water (Sterile Water For Irrigation) 1,000 ml IRR ASDIRECTED PRN PRN Reason: delivery Last Admin: 12/14/18 05:50 Dose: 1,000 ml Witch Symone (Tucks) 1 pad TOP ASDIRECTED PRN PRN Reason: comfort care Discontinued Medications Fentanyl (Sublimaze) Confirm Administered Dose 100 mcg .ROUTE .STK-MED ONE Stop: 12/14/18 02:11 Last Admin: 12/14/18 08:50 Dose: Not Given Ropivacaine (Naropin 0.2%) Confirm Administered Dose 100 mls @ as directed .ROUTE .STK-MED ONE Stop: 12/14/18 02:11 Last Admin: 12/14/18 08:50 Dose: Not Given Oxytocin/Sodium Chloride (Oxytocin 30 Unit/500 Ml-Ns) Confirm Administered Dose 30 unit in 500 mls @ as directed .ROUTE .STK-MED ONE Stop: 12/14/18 04:41 Last Admin: 12/14/18 08:50 Dose: Not Given - Infant Interaction Infant Disposition, : [place] in Room with Family Infant Interaction: Holding Infant Support Person: - Recovery Exam Fundal Tone: Firm Fundal Level: 1 Fingerbreadths Below Umbilicus Fundal Placement: Midline Lochia Amount: Scant Lochia Color: Rubra/Red Perineum Description: Intact, Minimal Bruising/Swelling Episiotomy/Laceration: None Bladder Status: Voiding - Exam General: Alert, Oriented Lungs: Clear to Auscultation, Normal Respiratory Effort Cardiovascular: Regular Rate, Regular Rhythm GI/Abdominal Exam: Soft Skin: Warm, Dry, Intact Neurological: No New Focal Deficit Psy/Mental Status: Alert, Normal Affect, Normal Mood - Problem List & Annotations (1) Vaginal delivery SNOMED Code(s): 571068492 Code(s): O80 - ENCOUNTER FOR FULL-TERM UNCOMPLICATED DELIVERY Status: Resolved Current Visit: Yes - Problem List Review Problem List Initiated/Reviewed/Updated: Yes - Assessment Assessment:: Stephanie is a 28 yo G3 now P3 that had an uncomplicated spontaneous vaginal delivery at 39+4 wks. PNC uncomplicated. Patient doing well - Plan Plan:: We will plan on discharging today. In the mean time, continue to monitor lochia and BP. Control pain, ambulate as tolerated, regular diet as tolerated. Adequate hydration Pt to follow up in [address] Decker or sooner if needed. Return-to- care precautions give including fever over 101F, heavy vaginal bleeding, abdominal/pelvic pain that is abnormal <Nakia Decker - Last Filed: 12/15/18 09:06> - Patient Data Vital Signs - Most Recent: Last Vital Signs Temp 36.6 C 12/15/18 07:28 Pulse 63 12/15/18 07:28 Resp 16 12/15/18 07:28 BP 121/79 12/15/18 07:28 Pulse Ox 98 12/15/18 07:28 Lab Results - Last 24 Hours: Laboratory Results - last 24 hr 12/15/18 Range/Units 06:31 Hgb 11.8 L (12.0-16.0) g/dL Hct 35.2 L (36.0-46.0) % Med Orders - Current: Current Medications Acetaminophen (Tylenol Extra Strength) 500 mg PO Q4H PRN PRN Reason: Pain Acetaminophen (Tylenol Extra Strength) 1,000 mg PO Q4H PRN PRN Reason: Pain Benzocaine/Menthol (Dermoplast Pain Relief 20%-0.5% [place]) 78 gm TOP ASDIRECTED PRN PRN Reason: Perineal Comfort Measure Bisacodyl (Dulcolax) 10 mg RECTAL ONETIME PRN PRN Reason: Constipation Butorphanol Tartrate (Stadol) 1 mg IVPUSH ASDIRECTED PRN PRN Reason: Pain Carboprost Tromethamine (Hemabate Ds) 250 mcg IM ASDIRECTED PRN PRN Reason: Post Hemorrhage Docusate Sodium (Colace) 100 mg PO BID PRN PRN Reason: Constipation Last Admin: 12/14/18 20:51 Dose: 100 mg Emollient Ointment (Lansinoh Hpa) 0 gm TOP ASDIRECTED PRN PRN Reason: Sore Nipples Tranexamic Acid 1,000 mg/ (Sodium Chloride) 110 mls @ 660 mls/hr IV ONETIME PRN PRN Reason: Bleeding Lactated Ringer's (Ringers, Lactated) 1,000 mls @ 150 mls/hr IV ASDIRECTED JOIE Last Admin: 12/14/18 02:06 Dose: 999 mls/hr Oxytocin/Sodium Chloride (Oxytocin 30 Unit/500 Ml-Ns) 30 unit in 500 mls @ 999 mls/hr IV TITRATE [facility] Last Admin: 12/14/18 04:58 Dose: 999 mls/hr Ibuprofen (Motrin) 400 mg PO Q4H PRN PRN Reason: Pain Ibuprofen (Motrin) 800 mg PO Q6H PRN PRN Reason: Pain Last Admin: 12/14/18 20:52 Dose: 800 mg Lidocaine HCl (Xylocaine 1%) 50 ml INJECT ONETIME PRN PRN Reason: Laceration repair Methylergonovine Maleate (Methergine) 0.2 mg IM ASDIRECTED PRN PRN Reason: Post Hemorrhage Misoprostol (Cytotec) 200 mcg PO ONETIME PRN PRN Reason: Post Hemorrhage Nalbuphine HCl (Nubain) 10 mg IVPUSH ASDIRECTED PRN PRN Reason: Pain (severe 7-10) Ondansetron HCl (Zofran) 4 mg IVPUSH Q6H PRN PRN Reason: Nausea/Vomiting Oxycodone HCl (Oxycodone) 5 mg PO Q2H PRN PRN Reason: Pain Sodium Chloride (Saline Flush) 10 ml FLUSH ASDIRECTED PRN PRN Reason: Keep Vein Open Sodium Chloride (Normal Saline) 10 ml IV ASDIRECTED PRN PRN Reason: IV Use Sterile Water (Sterile Water For Irrigation) 1,000 ml IRR ASDIRECTED PRN PRN Reason: delivery Last Admin: 12/14/18 05:50 Dose: 1,000 ml Witch Symone (Tucks) 1 pad TOP ASDIRECTED PRN PRN Reason: comfort care Discontinued Medications Fentanyl (Sublimaze) Confirm Administered Dose 100 mcg .ROUTE .STK-MED ONE Stop: 12/14/18 02:11 Last Admin: 12/14/18 08:50 Dose: Not Given Ropivacaine (Naropin 0.2%) Confirm Administered Dose 100 mls @ as directed .ROUTE .STK-MED ONE Stop: 12/14/18 02:11 Last Admin: 12/14/18 08:50 Dose: Not Given Oxytocin/Sodium Chloride (Oxytocin 30 Unit/500 Ml-Ns) Confirm Administered Dose 30 unit in 500 mls @ as directed .ROUTE .STK-MED ONE Stop: 12/14/18 04:41 Last Admin: 12/14/18 08:50 Dose: Not Given - Problem List Review Problem List Initiated/Reviewed/Updated: Yes - My Orders Last 24 Hours: My Active Orders 12/15/18 08:49 Ready for Discharge [RC] PER UNIT ROUTINE - Assessment Assessment:: Patient was seen and examined by me and I agree with above.
== END 2018-12-15 11:00 | disposition home or self-care (01) | DRG 807 ==
LOC: MW.OBCHECK 00:48 → MW.OB 00:50 → MW.OBCHECK 01:07 → OBSVTOIN 04:56 → MW.OB 08:25
PROVIDERS: ADMIT Obstetrics & Gynecology; ATTEND Obstetrics & Gynecology
PROC: 10E0XZZ Delivery of Products of Conception, External Approach (ICD-10-PCS; principal; 2018-12-14)
PROC: 3E0R3BZ Introduction of Anesthetic Agent into Spinal Canal, Percutaneous Approach (ICD-10-PCS; 2018-12-14)
PROC: 00HU33Z Insertion of Infusion Device into Spinal Canal, Percutaneous Approach (ICD-10-PCS; 2018-12-14)
DX: O80 Encounter for full-term uncomplicated delivery (principal); Z37.0 Single live birth; Z3A.39 39 weeks gestation of pregnancy
CPT/HCPCS: 01967; 36415; 51702; 59025; 59409; 82803; 85014; 85018; 85027; 86593; 86850; 86900; 86901; A9270-GY; J2590; J2795; J3010; J7120

== ENCOUNTER 2021-02-13 06:32 | Inpatient (IN) | payer SELFPAY ==
[2021-02-13] MEDS ORDERED: Nalbuphine 10 MG/1 ML Vial IVPUSH PRN (06:48)
[2021-02-13] MEDS ORDERED: Water For Irrigation,Sterile 1,000 ML Container IRR PRN (06:48)
[2021-02-13] MEDS ORDERED: Methylergonovine 0.2 MG/1 ML Amp IM PRN (06:48)
[2021-02-13] MEDS ORDERED: Carboprost Tromethamine 250 MCG/1 ML Amp IM PRN (06:48)
[2021-02-13] MEDS ORDERED: Tranexamic Acid 1,000 MG in Sodium Chloride 0.9% 100 ML IV PRN (06:48)
[2021-02-13] MEDS ORDERED: Lidocaine 1% 50 ML MDV INJECT PRN (06:48)
[2021-02-13] MEDS ORDERED: Butorphanol 1 MG/ML SDV IVPUSH PRN (06:48)
[2021-02-13] MEDS ORDERED: Sodium Chloride 0.9% 20 ML SDV IV PRN (06:48)
[2021-02-13] MEDS ORDERED: Sodium Chloride 0.9% 2.5 ML Syringe FLUSH PRN (06:48)
[2021-02-13] MEDS ORDERED: Misoprostol 200 MCG Tab PO PRN (06:48)
[2021-02-13] MEDS ORDERED: Sodium Chloride 0.9% 10 ML Syringe FLUSH PRN (06:48)
[2021-02-13] MEDS ORDERED: Lactated Ringers 1,000 ML IV SCH (07:00)
[2021-02-13] MEDS ORDERED: Oxytocin/0.9 % Sodium Chloride 30 UNIT/500 ML BAG IV SCH (07:00)
[2021-02-13] MEDS ORDERED: Lidocaine 1% 20 ML MDV ONE (07:10)
[2021-02-13] MEDS ORDERED: oxyCODONE 5 MG Tab PO PRN (07:24)
[2021-02-13] MEDS ORDERED: Docusate Sodium 100 MG Cap PO PRN (07:24)
[2021-02-13] MEDS ORDERED: Lanolin 100% Cream 7 GM Tube TOP PRN (07:24)
[2021-02-13] MEDS ORDERED: Witch Hazel Medicated Pads 40/Jar TOP PRN (07:24)
[2021-02-13] MEDS ORDERED: Bisacodyl 10 MG Supp RECTAL PRN (07:24)
[2021-02-13] MEDS ORDERED: Benzocaine/Menthol 20%-0.5% Spray 78 GM Cannister TOP PRN (07:24)
[2021-02-13] MEDS ORDERED: Acetaminophen 500 MG Tab PO PRN (07:24)
--- NOTE | 2021-02-13 07:28 | PCM.DEL ---
L & D Note - General Info Date of Service: 02/13/21 Mother's Due Date: 02/23/21 - Delivery Note Labor: Spontaneous Delivery Outcome: Livebirth Infant Delivery Method: Spontaneous Vaginal Delivery-Single Presentation: Vertex Nuchal Cord: None Anesthesia Type: None Amniotic Fluid Description: Clear Episiotomy Type: None Laceration: None Placenta: Intact, Spontaneous Cord: 3 Vessels Estimated Blood Loss: 200 Resuscitation Needed: No : Stimulated Score 1 min: 9 Score 5 min: 9 Delivery Comments (Free Text/Narrative):: Live female , weight pending - General Info Date of Service: 02/13/21 - Patient Data Weight - Most Recent: 73.482 kg Lab Results Last 24 Hours: Laboratory Results - last 24 hr 02/13/21 Range/Units 06:55 WBC 9.28 (4.0-11.0) K/uL RBC 4.14 L (4.30-5.90) M/uL Hgb 12.8 (12.0-16.0) g/dL Hct 37.1 (36.0-46.0) % MCV 89.6 (80.0-98.0) fL MCH 30.9 (27.0-32.0) pg MCHC 34.5 (31.0-37.0) g/dL RDW Std Deviation 43.9 (28.0-62.0) fl RDW Coeff of Elda 14 (11.0-15.0) % Plt Count 196 (150-400) K/uL MPV 11.20 (7.40-12.00) fL Nucleated RBC % 0.0 /100WBC Nucleated RBCs # 0 K/uL Med Orders - Current: Current Medications Bisacodyl (Bisacodyl 10 Mg Supp) 10 mg RECTAL ONETIME PRN PRN Reason: Constipation Butorphanol Tartrate (Butorphanol 1 Mg/Ml Sdv) 1 mg IVPUSH Q1H PRN PRN Reason: Pain (severe 7-10) Carboprost Tromethamine (Carboprost Tromethamine 250 Mcg/1 Ml Amp) 250 mcg IM ASDIRECTED PRN PRN Reason: Post Hemorrhage Docusate Sodium (Docusate Sodium 100 Mg Cap) 100 mg PO Q12H PRN PRN Reason: Constipation Oxytocin/Sodium Chloride (Oxytocin 30 Unit In Ns 0.9% 500 Ml Premix) 30 unit in 500 mls @ 999 mls/hr IV TITRATE [facility] Tranexamic Acid 1,000 mg/ (Sodium Chloride) 110 mls @ 660 mls/hr IV ONETIME PRN PRN Reason: Bleeding Lactated Ringer's (Ringers, Lactated) 1,000 mls @ 150 mls/hr IV ASDIRECTED [facility] Ibuprofen (Ibuprofen 800 Mg Tab) 800 mg PO Q8H PRN PRN Reason: Cramping Lidocaine HCl (Lidocaine 1% 50 Ml Mdv) 50 ml INJECT ONETIME PRN PRN Reason: Laceration repair Methylergonovine Maleate (Methylergonovine 0.2 Mg/1 Ml Amp) 0.2 mg IM ASDIRECTED PRN PRN Reason: Post Hemorrhage Misoprostol (Misoprostol 200 Mcg Tab) 200 mcg PO ONETIME PRN PRN Reason: Post Hemorrhage Nalbuphine HCl (Nalbuphine 10 Mg/1 Ml Vial) 10 mg IVPUSH Q1H PRN PRN Reason: Pain (severe 7-10) Oxycodone HCl (Oxycodone 5 Mg Tab) 5 mg PO Q2H PRN PRN Reason: Pain (severe 7-10) Sodium Chloride (Sodium Chloride 0.9% 10 Ml Syringe) 10 ml FLUSH ASDIRECTED PRN PRN Reason: Keep Vein Open Sodium Chloride (Sodium Chloride 0.9% 2.5 Ml Syringe) 2.5 ml FLUSH ASDIRECTED PRN PRN Reason: Keep Vein Open Sodium Chloride (Sodium Chloride 0.9% 20 Ml Sdv) 10 ml IV ASDIRECTED PRN PRN Reason: IV Use Sterile Water (Water For Irrigation,Sterile 1,000 Ml Container) 1,000 ml IRR ASDIRECTED PRN PRN Reason: delivery Witch Symone (Witch Symone Medicated Pads 40/Jar) 1 pad TOP ASDIRECTED PRN PRN Reason: comfort care Discontinued Medications Lidocaine HCl (Lidocaine 1% 20 Ml Mdv) Confirm Administered Dose 20 ml .ROUTE .STK-MED ONE Stop: 02/13/21 07:11 - Problem List & Annotations (1) Vaginal delivery SNOMED Code(s): 587620345 Code(s): O80 - ENCOUNTER FOR FULL-TERM UNCOMPLICATED DELIVERY Status: Resolved Current Visit: No - Problem List Review Problem List Initiated/Reviewed/Updated: No - My Orders Last 24 Hours: My Active Orders 02/13/21 Breakfast Clear Liquid Diet [DIET] Regular Diet [DIET] 02/13/21 06:48 Patient Status [ADT] Routine Heart Tones [RC] CONTINUOUS Non Stress Test [RC] PER UNIT ROUTINE May Shower [RC] ASDIRECTED Notify Provider [RC] PRN Up ad Olivia [RC] ASDIRECTED Vaginal Exam [RC] PRN Vital Signs [RC] PER UNIT ROUTINE CORONAVIRUS COVID-19 STELLA [MOLEC] Urgent Butorphanol [Stadol] 1 mg IVPUSH Q1H PRN Carboprost Tromethamine [Hemabate DS] 250 mcg IM ASDIRECTED PRN Lidocaine 1% [Xylocaine 1%] 50 ml INJECT ONETIME PRN Methylergonovine [Methergine] 0.2 mg IM ASDIRECTED PRN Nalbuphine [Nubain] 10 mg IVPUSH Q1H PRN Sodium Chloride 0.9% [Normal Saline] 10 ml IV ASDIRECTED PRN Sodium Chloride 0.9% [Saline Flush] 10 ml FLUSH ASDIRECTED PRN Sodium Chloride 0.9% [Saline Flush] 2.5 ml FLUSH ASDIRECTED PRN Tranexamic Acid [Cyklokapron] 1,000 mg Sodium Chloride 0.9% [Normal Saline] 100 ml IV ONETIME Water For Irrigation,Sterile [Sterile Water for Irrigation] 1,000 ml IRR ASDIRECTED PRN miSOPROStoL [Cytotec] 200 mcg PO ONETIME PRN Scalp Electrode [WOMSER] Per Unit Routine Peripheral IV Insertion Adult [OM.PC] Routine Resuscitation Status Routine 02/13/21 06:55 RPR (SYPHILIS SERO) W/ RFLX [REF] Routine TYPE AND SCREEN [BBK] Routine 02/13/21 07:00 Lactated Ringers [Ringers, Lactated] 1,000 ml IV ASDIRECTED Oxytocin/0.9 % Sodium Chloride [Oxytocin 30 Unit in NS 0.9% 500 ML Premix] 30 un it in 500 ml IV TITRATE 02/13/21 07:24 Patient Status [ADT] Routine May Shower [RC] ASDIRECTED Notify Provider Vital Signs [RC] ASDIRECTED Up ad Olivia [RC] ASDIRECTED Vital Signs [RC] PER UNIT ROUTINE Acetaminophen [Tylenol Extra Strength] 1,000 mg PO Q6H PRN Benzocaine/Menthol [Dermoplast Pain Relief 20%-0.5% [place]] 78 gm TOP ASDIRECTED PRN Docusate Sodium [Colace] 100 mg PO Q12H PRN Ibuprofen [Motrin] 800 mg PO Q8H PRN Lanolin [Lansinoh HPA] See Dose Instructions TOP ASDIRECTED PRN bisacodyL [Dulcolax] 10 mg RECTAL ONETIME PRN oxyCODONE 5 mg PO Q2H PRN witch Symone [Tucks] 1 pad TOP ASDIRECTED PRN Assess Lochia [WOMSER] Per Unit Routine Assess Uterine Involution [WOMSER] Per Unit Routine Breast Pump [WOMSER] Per Unit Routine Peripheral IV Discontinue [OM.PC] Routine 02/13/21 07:25 Cooling Warming Measures [RC] ASDIRECTED Ice Therapy [OM.PC] Per Unit Routine Perineal Care [OM.PC] Per Unit Routine Sitz Bath [OM.PC] Per Unit Routine 02/14/21 05:11 HEMOGLOBIN/HEMATOCRIT,HH [HEME] Timed - Assessment Assessment:: 30yo s/p at 38w4d - Plan Plan:: -Admit to unit for routine cares. -A+, rubella immune, GBS negative
--- NOTE | 2021-02-13 09:36 | OR ---
SURGEON: Caprice Cervantes MD DATE OF PROCEDURE: 02/13/2021 PREOPERATIVE DIAGNOSES: 1. 30-year-old, G4, P 3-0-0-3, at 38 weeks and 4 days' gestation. 2. Labor. 3. Group B Streptococcus negative. POSTOPERATIVE DIAGNOSES: 1. 30-year-old, G4, P 4-0-0-4, at 38 weeks and 4 days' gestation. 2. Labor. 3. Group B Streptococcus negative. PROCEDURE: Spontaneous vaginal delivery. PRIMARY SURGEON: Caprice Cervantes MD ANESTHESIA: None. ESTIMATED BLOOD LOSS: 200 mL. FINDINGS: Live female infant, cephalic presentation. score of 9 and 9 at one and five minutes respectively. Weight pending. Placenta intact and 3-vessel cord. Perineum inspected and no lacerations noted. DESCRIPTION OF PROCEDURE: The patient is a 30-year-old, G4, P 3-0-0-3, who presented at 38 weeks and 4 days' gestation complaining of contractions. Upon presentation, her cervix was found to be 7 cm dilated. She was admitted to Labor and Delivery. She quickly progressed to complete cervical dilation, and I arrived to the room. The patient began pushing and spontaneous rupture of membranes occurred with clear fluid noted. Over the next one contraction, the patient pushed and delivered a live female . The head was delivered followed quickly by her shoulders and the remainder of the body. The was placed on the maternal abdomen. After approximately 60 seconds, the cord was clamped and cut. The placenta then delivered intact and 3-vessel cord via the Torres-Guzman maneuver. The perineum was inspected, no lacerations were noted. The fundus was firm below the umbilicus and minimal bleeding. The patient and tolerated the delivery well. [id number] / MODL /[id number] MTDShannan
[2021-02-13] MEDS: Ibuprofen 800 MG Tab PO PRN (19:37)
[2021-02-14] MEDS: Ibuprofen 800 MG Tab PO PRN (04:47)
--- NOTE | 2021-02-14 04:48 | PCM.PNPP ---
- General Info Date of Service: 02/14/21 Functional Status: Reports: Pain Controlled, Tolerating Diet, Ambulating - Review of Systems General: Reports: No Symptoms HEENT: Reports: No Symptoms Pulmonary: Reports: No Symptoms Cardiovascular: Reports: No Symptoms Gastrointestinal: Reports: No Symptoms Genitourinary: Reports: No Symptoms Musculoskeletal: Reports: No Symptoms Skin: Reports: No Symptoms Neurological: Reports: No Symptoms Psychiatric: Reports: No Symptoms - General Info Date of Service: 02/14/21 - Patient Data Vital Signs - Most Recent: Last Vital Signs Temp 36.7 C 02/14/21 04:05 Pulse 86 02/14/21 04:05 Resp 18 02/14/21 04:05 BP 108/75 02/14/21 04:05 Pulse Ox 97 02/14/21 04:05 Weight - Most Recent: 73.482 kg I&O - Last 24 Hours: Intake & Output 02/13/21 02/13/21 02/14/21 14:59 22:59 06:59 Intake Total 300 Balance 300 Lab Results - Last 24 Hours: Laboratory Results - last 24 hr 02/13/21 02/13/21 02/13/21 Range/Units 06:55 06:55 07:16 WBC 9.28 (4.0-11.0) K/uL RBC 4.14 L (4.30-5.90) M/uL Hgb 12.8 (12.0-16.0) g/dL Hct 37.1 (36.0-46.0) % MCV 89.6 (80.0-98.0) fL MCH 30.9 (27.0-32.0) pg MCHC 34.5 (31.0-37.0) g/dL RDW Std Deviation 43.9 (28.0-62.0) fl RDW Coeff of Elda 14 (11.0-15.0) % Plt Count 196 (150-400) K/uL MPV 11.20 (7.40-12.00) fL Nucleated RBC % 0.0 /100WBC Nucleated RBCs # 0 K/uL SARS-CoV-2 RNA (STELLA) NEGATIVE (NEGATIVE) Blood Type A POSITIVE Antibody Screen NEGATIVE Med Orders - Current: Current Medications Acetaminophen (Acetaminophen 500 Mg Tab) 1,000 mg PO Q6H PRN PRN Reason: Pain (mild 1-3) Benzocaine/Menthol (Benzocaine/Menthol 20%-0.5% [place] 78 Gm Cannister) 78 gm TOP ASDIRECTED PRN PRN Reason: Perineal Comfort Measure Last Admin: 02/13/21 08:53 Dose: 1 bottle Documented by: Bisacodyl (Bisacodyl 10 Mg Supp) 10 mg RECTAL ONETIME PRN PRN Reason: Constipation Butorphanol Tartrate (Butorphanol 1 Mg/Ml Sdv) 1 mg IVPUSH Q1H PRN PRN Reason: Pain (severe 7-10) Carboprost Tromethamine (Carboprost Tromethamine 250 Mcg/1 Ml Amp) 250 mcg IM ASDIRECTED PRN PRN Reason: Post Hemorrhage Docusate Sodium (Docusate Sodium 100 Mg Cap) 100 mg PO Q12H PRN PRN Reason: Constipation Emollient Ointment (Lanolin 100% Cream 7 Gm Tube) 0 gm TOP ASDIRECTED PRN PRN Reason: Sore Nipples Last Admin: 02/13/21 08:53 Dose: 1 applic Documented by: Oxytocin/Sodium Chloride (Oxytocin 30 Unit In Ns 0.9% 500 Ml Premix) 30 unit in 500 mls @ 999 mls/hr IV TITRATE [facility] Last Admin: 02/13/21 07:14 Dose: 999 mls/hr Documented by: Tranexamic Acid 1,000 mg/ (Sodium Chloride) 110 mls @ 660 mls/hr IV ONETIME PRN PRN Reason: Bleeding Lactated Ringer's (Ringers, Lactated) 1,000 mls @ 150 mls/hr IV ASDIRECTED [facility] Last Admin: 02/13/21 07:00 Dose: 150 mls/hr Documented by: Ibuprofen (Ibuprofen 800 Mg Tab) 800 mg PO Q8H PRN PRN Reason: Cramping Last Admin: 02/13/21 19:37 Dose: 800 mg Documented by: Lidocaine HCl (Lidocaine 1% 50 Ml Mdv) 50 ml INJECT ONETIME PRN PRN Reason: Laceration repair Methylergonovine Maleate (Methylergonovine 0.2 Mg/1 Ml Amp) 0.2 mg IM ASDIRECTED PRN PRN Reason: Post Hemorrhage Misoprostol (Misoprostol 200 Mcg Tab) 200 mcg PO ONETIME PRN PRN Reason: Post Hemorrhage Nalbuphine HCl (Nalbuphine 10 Mg/1 Ml Vial) 10 mg IVPUSH Q1H PRN PRN Reason: Pain (severe 7-10) Oxycodone HCl (Oxycodone 5 Mg Tab) 5 mg PO Q2H PRN PRN Reason: Pain (severe 7-10) Sodium Chloride (Sodium Chloride 0.9% 10 Ml Syringe) 10 ml FLUSH ASDIRECTED PRN PRN Reason: Keep Vein Open Sodium Chloride (Sodium Chloride 0.9% 2.5 Ml Syringe) 2.5 ml FLUSH ASDIRECTED PRN PRN Reason: Keep Vein Open Sodium Chloride (Sodium Chloride 0.9% 20 Ml Sdv) 10 ml IV ASDIRECTED PRN PRN Reason: IV Use Sterile Water (Water For Irrigation,Sterile 1,000 Ml Container) 1,000 ml IRR ASDIRECTED PRN PRN Reason: delivery Witch Symone (Witch Symone Medicated Pads 40/Jar) 1 pad TOP ASDIRECTED PRN PRN Reason: comfort care Last Admin: 02/13/21 08:53 Dose: 1 container Documented by: Discontinued Medications Lidocaine HCl (Lidocaine 1% 20 Ml Mdv) Confirm Administered Dose 20 ml .ROUTE .ST43 [employer]-MED ONE Stop: 02/13/21 07:11 - Interaction Infant Disposition, : [place] in Room with Family Infant Interaction: Holding Infant Infant Feeding: Breastfed ; Nursed Well Support Person: - Recovery Exam Fundal Tone: Firm Fundal Level: 1 Fingerbreadths Below Umbilicus Fundal Placement: Midline Lochia Amount: Small Lochia Color: Rubra/Red Perineum Description: Intact, Minimal Bruising/Swelling Episiotomy/Laceration: None Bladder Status: Voiding Urinary Elimination: Voided - Exam General: Alert, Oriented HEENT: Pupils Equal Lungs: Normal Respiratory Effort GI/Abdominal Exam: Soft, Non-Tender, No Organomegaly, No Distention, No Mass Extremities: Non-Tender, No Pedal Edema Skin: Warm, Dry, Intact Neurological: No New Focal Deficit Psy/Mental Status: Alert, Normal Affect, Normal Mood - Problem List & Annotations (1) Vaginal delivery SNOMED Code(s): 178939724 Code(s): O80 - ENCOUNTER FOR FULL-TERM UNCOMPLICATED DELIVERY Status: Resolved Current Visit: No - Problem List Review Problem List Initiated/Reviewed/Updated: Yes - Assessment Assessment:: 30yo PPD# 1 after , Stable, minimal lochia, well. Would like to go home at 24 hours. if possible. - Plan Plan:: -Discharge instructions reviewed Dismiss to home if baby is discharged
[2021-02-14 16:03] VITALS: BP 114/57; PULSE 74
== END 2021-02-14 11:29 | disposition home or self-care (01) | DRG 807 ==
LOC: MW.OBCHECK 06:32 → MW.OB 06:33 → MW.OBCHECK 06:48 → OBSVTOIN 07:14 → MW.OB 15:00
PROVIDERS: ADMIT Obstetrics & Gynecology; ATTEND Obstetrics & Gynecology
PROC: 10E0XZZ Delivery of Products of Conception, External Approach (ICD-10-PCS; principal; 2021-02-13)
DX: O80 Encounter for full-term uncomplicated delivery (principal); Z37.0 Single live birth; Z3A.38 38 weeks gestation of pregnancy; Z20.822 Contact with and (suspected) exposure to COVID-19
CPT/HCPCS: 36415; 59025; 59409; 85014; 85018; 85027; 86592; 86850; 86900; 86901; A9270-GY; J2590; J7120; U0002

== ENCOUNTER 2022-06-16 12:32 | Emergency (ER) | payer OTHER ==
[2022-06-16 14:50] VITALS: BP 101/57; PULSE 84
== END 2022-06-16 14:51 | disposition home or self-care (01) ==
LOC: MW.ED 12:32
DX: S52.124A Nondisplaced fracture of head of right radius, initial encounter for closed fracture (principal); S60.512A Abrasion of left hand, initial encounter; W01.0XXA Fall on same level from slipping, tripping and stumbling without subsequent striking against object, initial encounter
CPT/HCPCS: 73090-26-RT; 73090-RT; 99283